=== PATIENT | female | born 1990 | race Caucasian/White ===

== ENCOUNTER 2018-03-09 15:52 | Emergency (ER) | payer BC, OTHER | END 2018-03-09 20:04 | disposition home or self-care (01) | LOC: FTE 15:52 | DX: M79.671 Pain in right foot (principal); M79.672 Pain in left foot; M79.661 Pain in right lower leg; M79.662 Pain in left lower leg; G47.00 Insomnia, unspecified | CPT/HCPCS: 73700; 93970; 99285-25 ==